=== PATIENT | female | born 2000 | race African-American/Black ===

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

== ENCOUNTER 2019-03-24 20:44 | Emergency (ER) | payer MEDICAID ==
[~2019-03-24] VITALS: Ht 160 cm; Wt 76.4 kg
[2019-03-25 00:28] VITALS: BP 120/64
== END 2019-03-25 00:41 | disposition home or self-care (01) ==
LOC: ER 20:50
DX: H66.91 Otitis media, unspecified, right ear (principal); J45.909 Unspecified asthma, uncomplicated
CPT/HCPCS: 99283

== ENCOUNTER 2019-11-03 16:52 | Emergency (ER) | payer MEDICAID ==
[~2019-11-03] VITALS: Ht 160 cm; Wt 70.0 kg
[2019-11-03] MEDS ORDERED: IBUPROFEN 600MG TABLET PO ONE (17:15)
[2019-11-03 17:24] VITALS: BP 109/70
== END 2019-11-03 18:17 | disposition home or self-care (01) ==
LOC: ER 16:52
DX: M79.644 Pain in right finger(s) (principal); J45.909 Unspecified asthma, uncomplicated; Y04.0XXA Assault by unarmed brawl or fight, initial encounter; Y93.89 Activity, other specified; Y92.89 Other specified places as the place of occurrence of the external cause
CPT/HCPCS: 73140; 99283

== ENCOUNTER 2019-12-03 10:46 | Emergency (ER) | payer MEDICAID ==
[~2019-12-03] VITALS: Ht 160 cm; Wt 71.0 kg
[2019-12-03 10:58] VITALS: BP 116/78
== END 2019-12-03 12:19 | disposition left against medical advice (07) ==
LOC: ER 10:46
DX: Z53.21 Procedure and treatment not carried out due to patient leaving prior to being seen by health care provider (principal); J45.909 Unspecified asthma, uncomplicated
CPT/HCPCS: 93005

== ENCOUNTER 2020-03-17 21:35 | Emergency (ER) | payer MEDICAID ==
[~2020-03-17] VITALS: Ht 160 cm; Wt 74.9 kg
[2020-03-17] MEDS ORDERED: IBUPROFEN 800MG TABLET PO ONE (22:45)
[2020-03-17 23:10] VITALS: BP 116/72
== END 2020-03-17 23:11 | disposition home or self-care (01) ==
LOC: ER 21:35
DX: J02.9 Acute pharyngitis, unspecified (principal); J45.909 Unspecified asthma, uncomplicated
CPT/HCPCS: 99283

== ENCOUNTER 2020-03-31 20:16 | Emergency (ER) | payer MEDICAID ==
[~2020-03-31] VITALS: Ht 160 cm; Wt 72.0 kg
[2020-03-31 20:19] VITALS: BP 123/78
== END 2020-03-31 21:06 | disposition home or self-care (01) ==
LOC: ER 20:16
DX: Z00.00 Encounter for general adult medical examination without abnormal findings (principal); J45.909 Unspecified asthma, uncomplicated
CPT/HCPCS: 99281